=== PATIENT | female | born 1990 | race African-American/Black ===

== ENCOUNTER 2022-02-22 19:43 | Emergency (ER) | payer MEDICAID ==
[~2022-02-22] VITALS: Ht 167.6 cm; Wt 104.0 kg
[2022-02-22 19:45] VITALS: BP 116/73
== END 2022-02-22 23:33 | disposition left against medical advice (07) ==
LOC: ER 19:43
DX: Z53.21 Procedure and treatment not carried out due to patient leaving prior to being seen by health care provider (principal)